=== PATIENT | female | born 1995 | race Hispanic/Latino ===

== ENCOUNTER 2021-05-04 09:58 | Emergency (ER) | payer SELFPAY ==
--- NOTE | 2021-05-04 12:48 | ER ---
Nurse's Notes [facility] Name: Sarah Castanon Age: 25 yrs Sex: Female : 1995 Arrival Date: 05/04/2021 Time: 10:01 Bed 9 Private MD: Diagnosis: Acute pharyngitis, unspecified Presentation: 05/04 10:27 Chief complaint: Patient states: c/o congestion,sob, cp times 3 days. states positive kh1 n/v/d. positive cough. Coronavirus screen: Vaccine status: Patient reports being unvaccinated. congestion, cough unrelated to allergies, diarrhea, difficulty breathing, headache, muscle pain, nausea. Ebola Screen: No symptoms or risks identified at this time. Initial Sepsis Screen: Does the patient meet any 2 criteria? No. Patient's initial sepsis screen is negative. Does the patient have a suspected source of infection? No. Patient's initial sepsis screen is negative. Risk Assessment: Do you want to hurt yourself or someone else? Patient reports no desire to harm self or others. Onset of symptoms is unknown. 10:27 Method Of Arrival: Ambulatory [facility] 10:27 Acuity: GRANT 3 kh1 Triage Assessment: 10:28 General: Appears in no apparent distress. comfortable. Respiratory: Reports shortness kh1 of breath at rest cough that is productive, Onset: The symptoms/episode began/occurred 3 days ago. - Immunization history:: Adult Immunizations up to date, Client reports having NOT received the Covid vaccine. - Social history:: Smoking status: Patient reports the use of cigarette tobacco products, smokes one-half pack cigarettes per day. Screenin:26 Abuse screen: Denies threats or abuse. Nutritional screening: No deficits noted. On no kh1 prescribed diet Difficulty chewing/swallowing? No. Tuberculosis screening: No symptoms or risk factors identified. Never had TB. Possible symptoms: None. Fall Risk No fall in past 12 months (0 pts). No secondary diagnosis (0 pts). No IV (0 pts). Ambulatory Aid- None/Bed Rest/Nurse Assist (0 pts). Gait- Normal/Bed Rest/Wheelchair (0 pts) Mental Status- Oriented to own ability (0 pts). Assessment: 10:12 General: Appears in no apparent distress. comfortable, Behavior is calm, cooperative, kh1 appropriate for age. Pain: Complains of pain in chest Pain radiates to back. Cardiovascular: Rhythm is regular. Respiratory: Airway is patent Respiratory effort is even, unlabored, Respiratory pattern is regular, the patient has mild shortness of breath. 11:28 Reassessment: Patient appears in no apparent distress at this time. No changes from [facility] previously documented assessment. Patient and/or family updated on plan of care and expected duration. Pain level reassessed. Patient is alert, oriented x 3, equal unlabored respirations, skin warm/dry/pink. Vital Signs: 10:25 BP 128 / 84; Pulse 70; Resp 16; Temp 98.0; Pulse Ox 100% on R/A; kh1 11:29 BP 121 / 77; Pulse 68; Resp 18; Temp 98.2; Pulse Ox 99% on R/A; kh1 Vitals: 10:25 Cardiac Rhythm Assessment Regular Sinus rhythm. [facility] ED Course: 10:01 Patient arrived in ED. as 10:09 Noble Apple PA is PHCP. fidel 10:09 Dimitrios Russell MD is Attending Physician. tamara 10:12 Jen Torres is Primary Nurse. 1 10:26 Patient has correct armband on for positive identification. [facility] 10:28 Triage completed. [facility] 11:28 Strep Sent. [facility] Administered Medications: No medications were administered Outcome: 12:47 Discharge ordered by . israel 13:04 Patient left the ED. tc5 Signatures: Noble Apple PA PA jmm Martinez, Amelia as Jen Torres [facility] Graciela Benites, RN RN tc5 Corrections: (The following items were deleted from the chart) 11:47 11:28 CORONAVIRUS+MR.LAB.BRZ drawn and sent. [facility] EDMS
--- NOTE | 2021-05-04 12:48 | EDPHYS ---
Physician Documentation [facility] Name: Sarah Castanon Age: 25 yrs Sex: Female : 1995 Arrival Date: 05/04/2021 Time: 10:01 Bed 9 Private MD: JIMMY Physician Dimitrios Russell HPI: 05/04 10:21 This 25 yrs old Female presents to ER via Ambulatory with complaints of jmm Shortness Of Breath, Fever, Chest Pain. 10:21 The patient has shortness of breath at rest. Onset: The symptoms/episode began/occurred jmm gradually. 17:22 Modifying factors: The symptoms are alleviated by nothing. the symptoms are aggravated jmm by nothing. This is a 25-year-old this is a 25-year-old female with no chronic medical conditions presents emerged part with complaints of congestion, cough, chest pain with cough, sore throat. Child has similar symptoms. . - Immunization history:: Adult Immunizations up to date, Client reports having NOT received the Covid vaccine. - Social history:: Smoking status: Patient reports the use of cigarette tobacco products, smokes one-half pack cigarettes per day. ROS: 17:22 Constitutional: Positive for body aches, chills. jmm 17:22 ENT: Positive for sore throat. 17:22 Respiratory: Positive for cough. 17:22 All other systems are negative. Exam: 17:22 Constitutional: This is a well developed, well nourished patient who is awake, alert, jmm and in no acute distress. Head/Face: atraumatic. Eyes: EOMI, no conjunctival erythema appreciated 17:22 Neck: Trachea midline, Supple Chest/axilla: Normal chest wall appearance and motion. Cardiovascular: Regular rate and rhythm. No edema appreciated Respiratory: Normal respirations, no respiratory distress appreciated Abdomen/GI: Non distended, soft Back: Normal ROM Skin: General appearance color normal MS/ Extremity: Moves all extremities, no obvious deformities appreciated, no edema noted to the lower extremities Neuro: Awake and alert, normal gait Psych: Behavior is normal, Mood is normal, Patient is cooperative and pleasant 17:22 ENT: Posterior pharynx: erythema, that is mild. Vital Signs: 10:25 BP 128 / 84; Pulse 70; Resp 16; Temp 98.0; Pulse Ox 100% on R/A; kh1 11:29 BP 121 / 77; Pulse 68; Resp 18; Temp 98.2; Pulse Ox 99% on R/A; kh1 MDM: 10:21 Patient medically screened. [facility] 12:46 Data reviewed: vital signs, nurses notes. Counseling: I had a detailed discussion with fidel the patient and/or guardian regarding: the historical points, exam findings, and any diagnostic results supporting the discharge/admit diagnosis, lab results, the need for outpatient follow up, to return to the emergency department if symptoms worsen or persist or if there are any questions or concerns that arise at home. ED course: Patient is alert and non toxic in appearance in the ED. Advised to follow up with pcp and otherwise given strict return precautions. Patient understood and agrees with the plan of care. . 05/04 11:00 Order name: Strep; Complete Time: 12:07 [facility] 05/04 11:47 Order name: SARS-COV-2 RT PCR; Complete Time: 12:46 EDMS 05/04 11:52 Order name: Throat Culture EDMS Administered Medications: No medications were administered Disposition: 05/05 07:53 Co-signature as Attending Physician, Dimitrios Russell MD I agree with the assessment and [facility] plan of care. Disposition Summary: 05/04/21 12:47 Discharge Ordered Location: Home [facility] Condition: Stable [facility] Diagnosis - Acute pharyngitis, unspecified [facility] Followup: [facility] - With: Private Physician - When: 2 - 3 days - Reason: Recheck today's complaints, Continuance of care, Re-evaluation by your physician Discharge Instructions: - Discharge Summary Sheet [facility] - Pharyngitis [facility] Forms: - Medication Reconciliation Form [facility] - Thank You Letter [facility] - Antibiotic Education [facility] - Prescription Opioid Use [facility] Prescriptions: - Augmentin 875-125 mg Oral Tablet - take 1 tablet by ORAL route every 12 hours for 10 days; 20 tablet; Refills: 0, [facility] Product Selection Permitted Signatures: Dispatcher [employer] Dimitrios Melendez MD MD cha Mickail, Joel, PA PA jmm Harris, Kecia [facility] Corrections: (The following items were deleted from the chart) 05/04 11:47 11:00 CORONAVIRUS+.MARIANELAZ ordered. EDMT EDMS
[2021-05-04 13:10] VITALS: BP 121/77; TEMP 98.2; O2SAT 99
== END 2021-05-04 13:04 | disposition home or self-care (01) ==
LOC: ER 09:58
DX: J02.9 Acute pharyngitis, unspecified (principal); Z20.822 Contact with and (suspected) exposure to COVID-19
CPT/HCPCS: 87070; 87081; 99283; U0003

== ENCOUNTER 2021-05-10 13:54 | Emergency (ER) | payer OTHER, SELFPAY ==
[2021-05-10 14:45] LABS: Urine Specific Gravity/Preg 1.025 (1.005-1.030)
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
[2021-05-10] MEDS ORDERED: CYCLOBENZAPRINE 10 MG TAB ONE (16:27)
[2021-05-10] MEDS ORDERED: IBUPROFEN 400 MG TAB ONE (16:27)
[2021-05-10 16:35] VITALS: BP 124/94; TEMP 97.6; O2SAT 100
[2021-05-11 16:32] LABS: Urine Blood Negative (Negative); Urine Glucose Negative (Negative); Urine Protein Negative (Negative); Urine Specific Gravity 1.025 (1.005-1.030)
== END 2021-05-10 16:16 | disposition home or self-care (01) ==
LOC: ER 13:54
DX: S39.012A Strain of muscle, fascia and tendon of lower back, initial encounter (principal); S39.013A Strain of muscle, fascia and tendon of pelvis, initial encounter; S29.012A Strain of muscle and tendon of back wall of thorax, initial encounter; F17.210 Nicotine dependence, cigarettes, uncomplicated; V49.40XA Driver injured in collision with unspecified motor vehicles in traffic accident, initial encounter
CPT/HCPCS: 70450; 71250; 72125; 81003; 81025

== ENCOUNTER 2021-08-11 09:33 | Emergency (ER) | payer SELFPAY ==
[2021-08-11] MEDS ORDERED: dexAMETHasone 10 MG/ML VIAL ONE (10:41)
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
--- NOTE | 2021-08-11 10:54 | EDPHYS ---
Physician Documentation [facility] Name: Sarah Castanon Age: 25 yrs Sex: Female : 1995 Arrival Date: 08/11/2021 Time: 09:34 Bed 26 Private MD: ED Physician Bert Dill HPI: 08/11 10:39 This 25 yrs old Female presents to ER via Ambulatory with complaints of Facial jmm Swelling, covid+, Breathing Difficulty. 10:39 The patient's rash thought to be caused by an unknown cause. The rash is located on the jmm face, right ear and left ear. Onset: The symptoms/episode began/occurred this morning. Associated signs and symptoms: Pertinent positives: burning sensation, Pain Pertinent negatives: swelling of lips, swelling of throat, swelling of tongue, vomiting. It is unknown whether or not the patient has had similar symptoms in the past. This is a 25-year-old female the presents emerged department with complaints of facial swelling and ear swelling bilaterally which began this morning. Patient describes it as a burning sensation to her face. Denies fever, shortness of breath, vomiting. Patient states she has a shellfish allergy but otherwise has no other known allergies.. 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 - Social history:: Smoking status: Patient denies any tobacco usage or history of. ROS: 10:39 Constitutional: Negative for fever, chills, and weight loss, Cardiovascular: Negative jmm for chest pain, palpitations, and edema, Respiratory: Negative for shortness of breath, cough, wheezing, and pleuritic chest pain. 10:39 Skin: Positive for erythema. 10:39 All other systems are negative. Exam: 10:39 Constitutional: This is a well developed, well nourished patient who is awake, alert, jmm and in no acute distress. 10:39 Eyes: EOMI, no conjunctival erythema appreciated 10:39 Neck: Trachea midline, Supple Chest/axilla: Normal chest wall appearance and motion. Cardiovascular: Regular rate and rhythm. No edema appreciated Respiratory: Normal respirations, no respiratory distress appreciated Abdomen/GI: Non distended, soft Back: Normal ROM 10:39 MS/ Extremity: Moves all extremities, no obvious deformities appreciated, no edema noted to the lower extremities 10:39 Head/face: Noted is rash, that is erythematous. 10:39 ENT: Posterior pharynx: is normal, Airway: normal, no evidence of obstruction. 10:39 Skin: on the face and left ear and right ear. 10:39 Neuro: Motor: is normal. 10:39 Psych: Behavior/mood is pleasant, cooperative, anxious. Vital Signs: 09:51 BP 132 / 88; Pulse 87; Resp 18; Temp 98.7; Pulse Ox 100% ; Weight 76.2 kg; Height 5 ft. jh5 2 in. (157.48 cm); Pain 7/10; 10:21 BP 117 / 49; Pulse 77; Resp 16; Pulse Ox 97% ; bp 11:11 BP 123 / 95; Pulse 70; Resp 16; Pulse Ox 100% ; bp 09:51 Body Mass Index 30.73 (76.20 kg, 157.48 cm) [facility] MDM: 10:39 Patient medically screened. [facility] 10:52 Data reviewed: vital signs, nurses notes. Counseling: I had a detailed discussion with fidel the patient and/or guardian regarding: the historical points, exam findings, and any diagnostic results supporting the discharge/admit diagnosis, the need for outpatient follow up, to return to the emergency department if symptoms worsen or persist or if there are any questions or concerns that arise at home. ED course: Patient is alert and nontoxic in appearance in the ED. Physical exam findings appear consistent with a dermatitis to the face. Patient will be given a course of steroids and is otherwise given strict return precautions. Patient understood agrees plan of care.. Administered Medications: 10:45 Drug: Decadron (dexamethasone) 10 mg Route: IM; Site: right gluteus; bp 11:14 Follow up: Response: No adverse reaction bp Disposition Summary: 08/11/21 10:53 Discharge Ordered Location: Home fidel Condition: Stable fidel Diagnosis - Rash and other nonspecific skin eruption israel Followup: fidel - With: Private Physician - When: 2 - 3 days - Reason: Recheck today's complaints, Continuance of care, Re-evaluation by your physician Discharge Instructions: - Rash, Adult israel - Discharge Summary Sheet bp Forms: - Medication Reconciliation Form [facility] - Thank You Letter [facility] - Work release form bp - Antibiotic Education [facility] - Prescription Opioid Use [facility] Prescriptions: - Hydroxyzine HCl 25 mg Oral Tablet - take 1 tablet by ORAL route every 6 hours As needed; 30 tablet; Refills: 0, [facility] Product Selection Permitted - Prednisone 20 mg Oral Tablet - take 3 tablets by ORAL route once daily for 5 days; 15 tablet; Refills: 0, [facility] Product Selection Permitted Signatures: Noble Apple PA PA jmm Peltier, Brian, RN RN bp Lindsey Bobby RN RN jh5
[2021-08-11 12:00] VITALS: TEMP 98.7
[2021-08-11 12:07] VITALS: BP 123/95; O2SAT 100
== END 2021-08-11 11:14 | disposition home or self-care (01) ==
LOC: ER 09:33
DX: R21 Rash and other nonspecific skin eruption (principal); U07.1 COVID-19
CPT/HCPCS: 96372; 99284; J1100

== ENCOUNTER 2024-04-07 23:12 | Emergency (ER) | payer SELFPAY ==
[2024-04-08 00:55] LABS: SARS-CoV-2 Antigen CONTROL BLUE LINE VIS/BG OK; SARS-CoV-2 Antigen Rapid Res Negative (Negative)
--- NOTE | 2024-04-08 00:57 | EDPHYS ---
Physician Documentation [facility] Name: Sarah Castanon Age: 28 yrs Sex: Female : 1995 Arrival Date: 04/07/2024 Time: 23:12 Bed 19 Private MD: ED Physician Mazin Marsh HPI: 04/07 23:29 This 28 yrs old Female presents to ER via Ambulatory with complaints of Flu sb4 Symptoms. 23:29 malaise and worsening sore throat x 3 days. woke up gasping for air this evening. sb4 states daughter and significant other have some flu like symptoms as well. denies any known fevers. no cough or chest pain. Historical: - Allergies: 23:27 No Known Allergies; ss - Home Meds: 23:27 None [Active]; ss - PMHx: 23:27 None; ss - PSHx: 23:27 tubal ligation; ss - Immunization history:: Client reports having NOT received the Covid vaccine. - Infectious Disease History:: Denies. - Social history:: Smoking status: Patient reports the use of cigarette tobacco products, smokes one pack cigarettes per day. ROS: 23:29 Abdomen/GI: Negative for abdominal pain, nausea, vomiting, diarrhea, and constipation, sb4 23:29 Constitutional: Positive for malaise, 23:29 ENT: Positive for sore throat, 23:29 All other systems are negative, Exam: 23:29 Constitutional: This is a well developed, well nourished patient who is awake, alert, sb4 and in no acute distress. Head/Face: Normocephalic, atraumatic. Eyes: Extra-ocular motions intact. Periorbital areas with no swelling, redness, or edema. Cardiovascular: Regular rate and rhythm with a normal S1 and S2. Respiratory: Lungs have equal breath sounds bilaterally, clear to auscultation and percussion. No rales, rhonchi or wheezes noted. No increased work of breathing, no retractions or nasal flaring. Abdomen/GI: Soft, non-tender, no distension. Skin: Warm, dry with normal turgor. Normal color with no rashes, no lesions, and no evidence of cellulitis. 23:29 ENT: Posterior pharynx: Tonsils: bilaterally enlarged, with erythema, no exudate, no ulcerations, Vital Signs: 23:25 BP 143 / 97; Pulse 103; Resp 18; Temp 98.4(O); Pulse Ox 98% ; Weight 79.38 kg; Height 5 ss ft. 2 in. ; Pain 03/08; 04/08 01:14 BP 132 / 82; Pulse 88; Resp 16; Pulse Ox 99% on R/A; hb 04/07 23:25 Body Mass Index 32.01 (79.38 kg, 157.48 cm) ss 04/07 23:25 Pain Scale: Adult ss MDM: 04/07 23:15 Patient medically screened. sb4 04/08 00:56 Data reviewed: vital signs, nurses notes, lab test result(s), and as a result, I will sb4 discharge patient. Counseling: I had a detailed discussion with the patient and/or guardian regarding the historical points, exam findings, and any diagnostic results supporting the discharge/admit diagnosis, lab results, to return to the emergency department if symptoms worsen or persist or if there are any questions or concerns that arise at home. 04/07 23:23 Order name: SARS RAPID; Complete Time: 00:56 sb4 04/07 23:23 Order name: Flu; Complete Time: 00:55 sb4 04/07 23:23 Order name: Strep; Complete Time: 00:55 sb4 Administered Medications: 01:12 Drug: Rocephin (cefTRIAXone) IM 1 grams IM once Route: IM; Site: right ventrogluteal; al5 Disposition Summary: 04/08/24 00:56 Discharge Ordered Notes: Location: Home sb4 Problem: new sb4 Symptoms: have improved sb4 Condition: Stable sb4 Diagnosis - Streptococcal pharyngitis sb4 Followup: sb4 - With: Emergency Department - When: As needed - Reason: Trouble breathing, Worsening of condition Discharge Instructions: - Discharge Summary Sheet sb4 - Strep Throat, Adult, [id number] sb4 Forms: - Antibiotic Education sb4 - Patient Portal Instructions sb4 - Leadership Thank You Letter sb4 - Family Work Release al5 Prescriptions: - Amoxicillin 875 mg Oral Tablet - take 1 tablet ORAL route every 12 hours for 10 days; 20 tablet; Refills: 0, sb4 Product Selection Permitted Addendum: 04/11/2024 16:19 I was immediately available for consultation during this patient's visit. I did not e c2 personally see the patient or discuss the patient with the DIXIE. . Signatures: Dispatcher [employer] EDMS Shirley Ruth, RN RN ss Misty Mckinley PA-C PA-C sb4 Mazin Marsh MD MD ec2 Ella Snyder RN RN al5 Corrections: (The following items were deleted from the chart) 04/07 23:24 23:24 SARS-COV-2 Antigen Rapid+I.LAB.BRZ ordered. EDMS EDMS 23:24 23:24 Influenza Screen (A \T\ B)+BA.LAB.BRZ ordered. EDMS EDMS 23:24 23:24 Group A Streptococcus Rapid Sc+BA.LAB.BRZ ordered. EDMS EDMS
--- NOTE | 2024-04-08 00:57 | ER ---
Nurse's Notes [facility] Name: Sarah Castanon Age: 28 yrs Sex: Female : 1995 Arrival Date: 04/07/2024 Time: 23:12 Bed 19 Private MD: Diagnosis: Streptococcal pharyngitis Presentation: 04/07 23:25 Chief complaint: Patient states: not feeling well x 3 days. Pt pain in throat when ss swallowing. Coronavirus screen: Client denies travel out of the [place] in the last 14 days. Ebola Screen: Patient denies exposure to infectious person. Patient denies travel to an Ebola-affected area in the 21 days before illness onset. Initial Sepsis Screen: Does the patient meet any 2 criteria? No. Patient's initial sepsis screen is negative. Does the patient have a suspected source of infection? No. Patient's initial sepsis screen is negative. Risk Assessment: Do you want to hurt yourself or someone else? Patient reports no desire to harm self or others. Onset of symptoms was April 04, 2024. 23:25 Method Of Arrival: Ambulatory ss 23:25 Acuity: GRANT 4 ss Triage Assessment: 23:27 General: Appears in no apparent distress. comfortable, Behavior is calm, cooperative. ss Historical: - Allergies: 23:27 No Known Allergies; ss - Home Meds: 23:27 None [Active]; ss - PMHx: 23:27 None; ss - PSHx: 23:27 tubal ligation; ss - Immunization history:: Client reports having NOT received the Covid vaccine. - Infectious Disease History:: Denies. - Social history:: Smoking status: Patient reports the use of cigarette tobacco products, smokes one pack cigarettes per day. Screenin:42 [facility] ED Fall Risk Assessment (Adult) History of falling in the last 3 months, ss including since admission No falls in past 3 months (0 pts) Confusion or Disorientation No (0 pts) Intoxicated or Sedated No (0 pts) Impaired Gait No (0 pts) Mobility Assist Device Used No (0 pt) Altered Elimination No (0 pt) Score/Fall Risk Level 0 - 2 = Low Risk Oriented to surroundings. Abuse screen: Denies threats or abuse. Denies injuries from another. Nutritional screening: No deficits noted. Tuberculosis screening: Never had TB. Assessment: 23:42 General: Appears in no apparent distress. Behavior is calm, cooperative. Pain: ss Complains of pain in throat Pain currently is 0 out of 10 on a pain scale. at worst was 8 out of 10 on a pain scale. Aggravated by when swallowing. Neuro: Level of Consciousness is awake, alert, obeys commands, Oriented to person, place, time, situation. Cardiovascular: Capillary refill < 3 seconds is brisk in bilateral fingers. Respiratory: Airway is patent Respiratory effort is even, unlabored, Respiratory pattern is regular, symmetrical. GI: Patient currently denies diarrhea, nausea, vomiting. EENT: Throat is reddened has enlarged tonsils. Derm: Skin is intact, is healthy with good turgor, Skin is pink, warm \T\ dry. normal. 04/08 01:13 Reassessment: Patient appears in no apparent distress at this time. hb Vital Signs: 04/07 23:25 BP 143 / 97; Pulse 103; Resp 18; Temp 98.4(O); Pulse Ox 98% ; Weight 79.38 kg; Height 5 ss ft. 2 in. ; Pain 03/08; 04/08 01:14 BP 132 / 82; Pulse 88; Resp 16; Pulse Ox 99% on R/A; hb 04/07 23:25 Body Mass Index 32.01 (79.38 kg, 157.48 cm) 04/07 23:25 Pain Scale: Adult ss ED Course: 04/07 23:13 Patient arrived in ED. im 23:14 Misty Mckinley PA-C is PHCP. sb4 23:14 Mazin Marsh MD is Attending Physician. sb4 23:27 Triage completed. ss 23:27 Arm band placed on right wrist. ss 23:42 Shirley Ruth, HEATHER is Primary Nurse. ss 23:42 Patient has correct armband on for positive identification. Bed in low position. ss 23:42 Strep Sent. ss 23:42 Flu Sent. ss 23:42 SARS RAPID Sent. ss 04/08 00:48 Strep Sent. ss 00:48 Flu Sent. ss 00:48 SARS RAPID Sent. ss 01:14 Provided Education on: mediations, follow up. hb 01:14 No provider procedures requiring assistance completed. Patient did not have IV access hb during this emergency room visit. Administered Medications: 01:12 Drug: Rocephin (cefTRIAXone) IM 1 grams IM once Route: IM; Site: right ventrogluteal; al5 Medication: 04/07 23:42 VIS not applicable for this client. Outcome: 04/08 00:56 Discharge ordered by . rosemarie 01:14 Discharged to home ambulatory, 01:14 Condition: stable 01:14 Discharge instructions given to patient, Instructed on discharge instructions, follow up and referral plans. medication usage, Demonstrated understanding of instructions, follow-up care, medications, Prescriptions given X 1, 01:15 Patient left the ED. Signatures: Shirley Ruth RN RN Shawnee Khan, RN RN Misty Mckinley, PA-C PA-C sb4 Dhara oTrres Amanda RN RN al5
[2024-04-08] MEDS ORDERED: LIDOCAINE 1% MPF 2 ML AMPULE ONE (01:07)
[2024-04-08] MEDS ORDERED: CEFTRIAXONE 1000 MG/VIAL ONE (01:07)
[2024-04-08 01:57] VITALS: TEMP 98.4
[2024-04-08 01:58] VITALS: BP 132/82; O2SAT 99
== END 2024-04-08 01:15 | disposition home or self-care (01) ==
LOC: ER 23:12
DX: J02.0 Streptococcal pharyngitis (principal); Z11.52 Encounter for screening for COVID-19
CPT/HCPCS: 36415; 87081; 87804; 87811; 96372; 99284; J0696

== ENCOUNTER 2024-08-05 12:18 | Emergency (ER) | payer SELFPAY ==
--- NOTE | 2024-08-05 13:22 | ER ---
Nurse's Notes [facility] Name: Sarah Castanon Age: 28 yrs Sex: Female : 1995 Arrival Date: 08/05/2024 Time: 12:18 Bed 7 Private MD: Diagnosis: Suspected vaginal foreign body - none identified Presentation: 08/05 13:07 Chief complaint: Patient states: Possible tampon stuck in vagina for 4 days. No pain. ll1 Coronavirus screen: Client denies travel out of the [place] in the last 14 days. At this time, the client does not indicate any symptoms associated with coronavirus-19. Ebola Screen: Patient denies travel to an Ebola-affected area in the 21 days before illness onset. Initial Sepsis Screen: Does the patient meet any 2 criteria? No. Patient's initial sepsis screen is negative. Does the patient have a suspected source of infection? No. Patient's initial sepsis screen is negative. Risk Assessment: Do you want to hurt yourself or someone else? Patient reports no desire to harm self or others. Onset of symptoms was August 01, 2024. 13:07 Method Of Arrival: Ambulatory ll1 13:07 Acuity: GRANT 3 ll1 Triage Assessment: 13:21 General: Appears uncomfortable, Behavior is cooperative, appropriate for age, anxious. ll1 Pain: Denies pain. : Reports possible FB in vagina. 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 - Infectious Disease History:: Denies. - Family history:: not pertinent. - Hospitalizations: : No recent hospitalization is reported. - Social history:: Smoking status: Patient denies any tobacco usage or history of. Screenin:21 [facility] ED Fall Risk Assessment (Adult) History of falling in the last 3 months, ll1 including since admission No falls in past 3 months (0 pts) Confusion or Disorientation No (0 pts) Intoxicated or Sedated No (0 pts) Impaired Gait No (0 pts) Mobility Assist Device Used No (0 pt) Altered Elimination No (0 pt) Score/Fall Risk Level 0 - 2 = Low Risk Maintained a safe environment, Hourly rounding (assess needs \T\ fall precautionary measures) done. Abuse screen: Denies threats or abuse. Nutritional screening: No deficits noted. Tuberculosis screening: No symptoms or risk factors identified. Vital Signs: 13:06 BP 121 / 87; Pulse 73; Resp 16; Temp 97.3; Pulse Ox 99% ; Pain 0/10; ll1 13:26 BP 112 / 84; Pulse 70; Resp 15; Pulse Ox 99% ; Pain 0/10; ll1 13:06 Pain Scale: Adult ll1 13:26 Pain Scale: Adult ll1 ED Course: 12:20 Patient arrived in ED. im 12:24 Lavelle Betancourt MD is Attending Physician. rn 12:54 Arm band placed on Patient placed in an exam room, on a stretcher. ll1 13:07 Triage completed. ll1 13:08 Kiana Banks, HEATHER is Primary Nurse. ll1 13:15 Assist provider with pelvic exam: Performed by Lavelle Betancourt MD Patient tolerated well. ll1 13:22 Patient has correct armband on for positive identification. Bed in low position. Call ll1 light in reach. Provided Education on: ER procedures and process. Client placed on continuous cardiac and pulse oximetry monitoring. NIBP monitoring applied. 13:27 Patient did not have IV access during this emergency room visit. ll1 Administered Medications: No medications were administered Medication: 13:21 VIS not applicable for this client. ll1 Outcome: 13:21 Discharge ordered by . rn 13:27 Discharged to home ambulatory, 1 13:27 Condition: stable 13:27 Discharge instructions given to patient, Instructed on discharge instructions, follow up and referral plans. Demonstrated understanding of instructions, follow-up care, 13:27 Patient left the ED. ll1 Signatures: Lavelle Betancourt MD MD rn Lewis, Lynsay, RN RN 1 Dhara Torres im
--- NOTE | 2024-08-05 13:22 | EDPHYS ---
Physician Documentation [facility] Name: Sarah Castanon Age: 28 yrs Sex: Female : 1995 Arrival Date: 08/05/2024 Time: 12:18 Bed 7 Private MD: ED Physician Lavelle Betancourt HPI: 08/05 13:18 This 28 yrs old Female presents to ER via Ambulatory with complaints of rn Foreign body In Vagina - tampon. 13:18 The patient presents with Possible foreign body. Onset: The symptoms/episode rn began/occurred 3 day(s) ago. Modifying factors: The symptoms are alleviated by nothing, the symptoms are aggravated by nothing. Severity of symptoms: At their worst the symptoms were mild, in the emergency department the symptoms are unchanged. The patient has not experienced similar symptoms in the past. Patient reports placed tampon on Sunday, does not remember taking it out. No foul-smelling discharge or fever. No abdominal or pelvic pain. 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 Has an appointment in 2 days.. 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 - Infectious Disease History:: Denies. - Family history:: not pertinent. - Hospitalizations: : No recent hospitalization is reported. - Social history:: Smoking status: Patient denies any tobacco usage or history of. ROS: 13:18 Constitutional: Negative for fever, chills, and weight loss, : Negative for pelvic youth support worker perineal pain. No vaginal discharge Skin: Negative for injury, rash, and discoloration, Exam: 13:18 Constitutional: This is a well developed, well nourished patient who is awake, alert, rn and in no acute distress. Abdomen/GI: Soft, non-tender Female : Normal external genitalia. Small amount of blood and clot in vaginal canal, explored with Q-tips and ring forceps and specula without evidence of foreign body. All fornices explored and no foreign body found. Vital Signs: 13:06 BP 121 / 87; Pulse 73; Resp 16; Temp 97.3; Pulse Ox 99% ; Pain 0/10; ll1 13:26 BP 112 / 84; Pulse 70; Resp 15; Pulse Ox 99% ; Pain 0/10; ll1 13:06 Pain Scale: Adult ll1 13:26 Pain Scale: Adult ll1 MDM: 12:24 Medical Screening Exam initiated rn 13:18 Differential diagnosis: Vaginal foreign body. Data reviewed: vital signs, nurses notes, rn and as a result, I will discharge patient. Counseling: I had a detailed discussion with the patient and/or guardian regarding the historical points, exam findings, and any diagnostic results supporting the discharge/admit diagnosis, the need for outpatient follow up, to return to the emergency department if symptoms worsen or persist or if there are any questions or concerns that arise at home. Special discussion: I discussed with the patient/guardian in detail that at this point there is no indication for admission to the hospital. It is understood, however, that if the symptoms persist or worsen the patient needs to return immediately for re-evaluation. ED course: No evidence of foreign body found in vagina. Has appointment in 2 days, return precautions given and understood.. Administered Medications: No medications were administered Disposition Summary: 08/05/24 13:21 Discharge Ordered Notes: Location: Home rn Problem: new rn Symptoms: have improved rn Condition: Stable rn Diagnosis - Suspected vaginal foreign body - none identified rn Followup: rn - With: Private Physician - When: As needed - Reason: Recheck today's complaints, Re-evaluation by your physician Discharge Instructions: - Discharge Summary Sheet rn - Vaginal Foreign Body rn Forms: - Medication Reconciliation Form rn - Antibiotic lead burner - Prescription Opioid Use rn - Patient Portal Instructions rn - Leadership Thank You Letter rn Signatures: Lavelle Betancourt MD MD rn Lewis, Lynsay, RN RN 1 Corrections: (The following items were deleted from the chart) 13:19 13:18 Constitutional: Negative for fever, chills, and weight loss, : Negative for rn pelvic or perineal pain. No vaginal harness tier
[2024-08-05 13:43] VITALS: TEMP 97.3; O2SAT 99
[2024-08-05 13:51] VITALS: BP 112/84
== END 2024-08-05 13:27 | disposition home or self-care (01) ==
LOC: ER 12:18
DX: Z71.1 Person with feared health complaint in whom no diagnosis is made (principal)
CPT/HCPCS: 99283

== ENCOUNTER 2024-12-12 05:53 | Emergency (ER) | payer SELFPAY ==
--- NOTE | 2024-12-12 08:03 | RAD REPORT ---
EXAMINATION: XR Ankle Left 2 View CLINICAL INDICATION: Female, 29 years old. BR MAIN DEFORMITY Bed Name: TECHNIQUE: 2 view radiographs of the left ankle were obtained. COMPARISON: No prior exam. FINDINGS: No acute bone or joint abnormality seen. Joint alignment is maintained. Small calcaneal spur. Soft tissue swelling about the ankle most pronou nced laterally. IMPRESSION: No acute osseous abnormalities. Soft tissue swelling about the ankle.
--- NOTE | 2024-12-12 08:07 | EDPHYS ---
Physician Documentation [facility] Name: Sarah Castanon Age: 29 yrs Sex: Female : 1995 Arrival Date: 12/12/2024 Time: 05:53 Bed 17 Private MD: ED Physician Antonio Lucero HPI: 12/12 06:41 This 29 yrs old Female presents to ER via Ambulatory with complaints of Ankle gb1 Injury, Ankle Swelling. 06:41 29-year-old female fell and tripped into a hole in the ground and twisted her right gb1 ankle. She woke up this morning with more swollen. She took some Aleve and it still swollen and throbbing. She is able to walk on it but is very painful 8 out of 10.. Historical: - Allergies: 06:05 Iodine; br2 - PSHx: 06:05 tubal ligation; br2 - Immunization history:: Adult Immunizations up to date. - Infectious Disease History:: Denies. - Social history:: Smoking status: Patient reports the use of cigarette tobacco products, smokes one-half pack cigarettes per day, Patient uses alcohol, occasionally. Patient/guardian denies using street drugs. Exam: 06:41 Constitutional: This is a well developed, well nourished patient who is awake, alert, gb1 and in no acute distress. Head/Face: Normocephalic, atraumatic. Chest/axilla: Normal chest wall appearance and motion. Nontender with no deformity. No lesions are appreciated. Cardiovascular: Regular rate and rhythm with a normal S1 and S2. No gallops, murmurs, or rubs. Normal PMI, no JVD. No pulse deficits. MS/ Extremity: Pulses equal, no cyanosis. Neurovascular intact. Localized swelling to the left ankle joint circumferentially pulses intact DP/PT. Range of motion decreased secondary to pain and swelling. Vital Signs: 06:04 BP 159 / 101; Pulse 94; Resp 18; Temp 97.1; Pulse Ox 100% ; Weight 86.18 kg; Height 5 br2 ft. 2 in. ; Pain 8/10; 06:38 BP 138 / 96; Pulse 87; Resp 18; Pulse Ox 100% ; Pain 8/10; rg5 06:04 Body Mass Index 34.75 (86.18 kg, 157.48 cm) br2 06:04 Pain Scale: Adult br2 06:38 Pain Scale: Adult rg5 MDM: 06:13 Medical Screening Exam initiated gb1 06:41 ED course: 29-year-old female status post fall with a inversion injury of the left gb1 ankle. No signs of occult fracture or dislocation on x-ray. Likely ligamentous injury will need an MRI as an outpatient recommend an encourage NSAIDs for pain. Patient is compliant with this plan of care. Consider PCP follow-up with orthopedic consultation depending on the results of the MRI of the left ankle.. 08:07 Differential diagnosis: fracture, sprain. Data reviewed: vital signs, nurses notes, rt radiologic studies. Independent interpretation of the following test(s) in the Emergency Department X-Ray: My interpretation is No fracture seen on interpretation of x-ray images. Counseling: I had a detailed discussion with the patient and/or guardian regarding the historical points, exam findings, and any diagnostic results supporting the discharge/admit diagnosis, radiology results, the need for outpatient follow up. 12/12 06:04 Order name: Ankle Left 2 View XRAY; Complete Time: 08:04 gb1 Administered Medications: No medications were administered Disposition Summary: 12/12/24 08:07 Discharge Ordered Notes: Location: Home rt Condition: Stable rt Diagnosis - Sprain of ankle rt Followup: rt - With: Private Physician - When: 2 - 3 days - Reason: Discharge Instructions: - Discharge Summary Sheet rt - Ankle Sprain rt Forms: - Work release form rt - Medication Reconciliation Form rt - Antibiotic Education rt - Prescription Opioid Use rt - Patient Portal Instructions rt - Leadership Thank You Letter rt Signatures: Dispatcher [employer] EDMT Antonio Lucero MD MD rt Colleen Valencia MD MD gb1 Talita Wolf, HEATHER RN br2
--- NOTE | 2024-12-12 08:07 | ER ---
Nurse's Notes [facility] Name: Sarah Castanon Age: 29 yrs Sex: Female : 1995 Arrival Date: 12/12/2024 Time: 05:53 Bed 17 Private MD: Diagnosis: Sprain of ankle Presentation: 12/12 06:04 Chief complaint: Patient states: STEPPED IN A HOLE AND TWISTED LEFT ANKLE. PT ARRIVES br2 TO ER WITH EDEMA +2 TO LEFT ANKLE. Coronavirus screen: Client denies travel out of the [place] in the last 14 days. Ebola Screen: Patient denies exposure to infectious person. Initial Sepsis Screen: Does the patient meet any 2 criteria? No. Patient's initial sepsis screen is negative. Does the patient have a suspected source of infection? No. Patient's initial sepsis screen is negative. Risk Assessment: Do you want to hurt yourself or someone else? Patient reports no desire to harm self or others. Onset of symptoms was December 11, 2024 at 17:30. 06:04 Method Of Arrival: Ambulatory br2 06:04 Acuity: GRANT 4 br2 Triage Assessment: 06:05 General: Appears uncomfortable, Behavior is calm, cooperative. Pain: Complains of pain br2 in left lateral malleolus and dorsum of left foot Pain currently is 8 out of 10 on a pain scale. Musculoskeletal: Capillary refill < 3 seconds, Range of motion: intact in all extremities, Swelling present in left lateral malleolus and dorsum of left foot. Historical: - Allergies: 06:05 Iodine; br2 - PSHx: 06:05 tubal ligation; br2 - Immunization history:: Adult Immunizations up to date. - Infectious Disease History:: Denies. - Social history:: Smoking status: Patient reports the use of cigarette tobacco products, smokes one-half pack cigarettes per day, Patient uses alcohol, occasionally. Patient/guardian denies using street drugs. Screenin:07 [facility] ED Fall Risk Assessment (Adult) History of falling in the last 3 months, rg5 including since admission Confusion or Disorientation No (0 pts) Intoxicated or Sedated No (0 pts) Impaired Gait No (0 pts) Mobility Assist Device Used No (0 pt) Altered Elimination No (0 pt) Score/Fall Risk Level 0 - 2 = Low Risk Oriented to surroundings, Maintained a safe environment, Hourly rounding (assess needs \T\ fall precautionary measures) done. Abuse screen: Denies threats or abuse. Nutritional screening: No deficits noted. Tuberculosis screening: No symptoms or risk factors identified. Assessment: 06:07 General: Appears in no apparent distress. Behavior is calm, cooperative, appropriate rg5 for age. Pain: Complains of pain in left foot Quality of pain is described as aching. Neuro: Level of Consciousness is awake, alert, obeys commands, Oriented to person, place, time, situation, Appropriate for age. Cardiovascular: Denies chest pain, Capillary refill < 3 seconds Patient's skin is warm and dry. Respiratory: Airway is patent Trachea midline Respiratory effort is even, unlabored, Respiratory pattern is regular, symmetrical. GI: Abdomen is round obese. : No signs and/or symptoms were reported regarding the genitourinary system. EENT: No signs and/or symptoms were reported regarding the EENT system. Derm: Skin is intact, Skin is dry, Skin is normal, Skin temperature is warm. Musculoskeletal: Swelling present in left lateral ankle. Vital Signs: 06:04 BP 159 / 101; Pulse 94; Resp 18; Temp 97.1; Pulse Ox 100% ; Weight 86.18 kg; Height 5 br2 ft. 2 in. ; Pain 8/10; 06:38 BP 138 / 96; Pulse 87; Resp 18; Pulse Ox 100% ; Pain 8/10; rg5 06:04 Body Mass Index 34.75 (86.18 kg, 157.48 cm) br2 06:04 Pain Scale: Adult br2 06:38 Pain Scale: Adult rg5 ED Course: 05:57 Patient arrived in ED. gm2 05:59 Humberto Burt, HEATHER is Primary Nurse. rg5 06:03 Colleen Valencia MD is Attending Physician. gb1 06:05 Triage completed. br2 06:05 Arm band placed on right wrist. br2 06:07 Patient has correct armband on for positive identification. rg5 06:07 No provider procedures requiring assistance completed. Patient did not have IV access rg5 during this emergency room visit. 06:26 Ankle Left 2 View XRAY In Process Unspecified. EDMS 07:00 Attending Physician role handed off by Colleen Valencia MD rt 07:00 Antonio Lucero MD is Attending Physician. rt 07:00 Patient has correct armband on for positive identification. Bed in low position. Call kc6 light in reach. Side rails up X 1. Pulse ox on. NIBP on. Door closed. Noise minimized. Lights dimmed. Warm blanket given. Pillow given. Verbal reassurance given. 07:00 Report received from HEATHER Arcos. kc6 07:00 Patient maintains SpO2 saturation greater than 95% on room air. kc6 08:20 Satnam wrap to left ankle. kc6 Administered Medications: No medications were administered Medication: 06:07 VIS not applicable for this client. rg5 Outcome: 08:07 Discharge ordered by MD. rt 08:21 Discharged to home ambulatory, kc6 08:21 Condition: good 08:21 Discharge instructions given to patient, Instructed on discharge instructions, follow up and referral plans. Demonstrated understanding of instructions, follow-up care, 08:25 Patient left the ED. kc6 Signatures: Dispatcher [employer] EDMS Natalia Gramajo, RN RN kc6 Antonio Lucero MD MD rt Colleen Valencia MD MD gb1 Thais Maurice gm2 Humberto Burt RN RN rg5 Talita Wolf RN RN br2
[2024-12-12 08:32] VITALS: TEMP 97.1; O2SAT 100
[2024-12-12 08:33] VITALS: BP 138/96
== END 2024-12-12 08:25 | disposition home or self-care (01) ==
LOC: ER 05:53
DX: S93.401A Sprain of unspecified ligament of right ankle, initial encounter (principal)
CPT/HCPCS: 99283

== ENCOUNTER 2024-12-19 00:16 | Emergency (ER) | payer SELFPAY ==
[2024-12-19] MEDS ORDERED: METHYLPREDNISOLONE 125 MG INJ ONE (00:24)
[2024-12-19] MEDS ORDERED: DIPHENHYDRAMINE 50 MG/ML VIAL ONE (00:24)
[2024-12-19] MEDS ORDERED: NA CHLORIDE 0.9% 1,000 ML ONE (00:39)
[2024-12-19] MEDS ORDERED: FAMOTIDINE 20 MG/2 ML VIAL IV ONE (00:39)
[2024-12-19] MEDS ORDERED: LORazepam 2 MG/ML VIAL ONE (01:55)
[2024-12-19] MEDS ORDERED: ONDANSETRON 4 MG/2 ML VIAL ONE (01:56)
--- NOTE | 2024-12-19 02:15 | EDPHYS ---
Physician Documentation [facility] Name: Sarah Castanon Age: 29 yrs Sex: Female : 1995 Arrival Date: 12/19/2024 Time: 00:16 Bed 11 Private MD: ED Physician Antonio Lucero HPI: 12/19 02:06 This 29 yrs old Female presents to ER via Ambulatory with complaints of sb4 Allergic Reaction. 02:06 Patient states that she has a known allergy to shellfish. States that she purposefully sb4 ate imitation crab yesterday and ate 2 pieces of shrimp this evening. States the ingestion was several hours ago and was feeling fine until suddenly she started experiencing diffuse itchiness and shortness of breath. She has not taken any antihistamines or used her EpiPen. Historical: - Allergies: 00:35 Iodine; jb4 00:35 SHELLFISH; jb4 - PSHx: 00:35 tubal ligation; jb4 - Immunization history:: Adult Immunizations up to date. - Infectious Disease History:: Denies. - Social history:: Smoking status: Patient denies any tobacco usage or history of. ROS: 02:06 Constitutional: Negative for fever, chills, and weight loss, sb4 02:06 Respiratory: Positive for shortness of breath, 02:06 Skin: Positive for rash, 02:06 All other systems are negative, Exam: 02:07 Head/Face: Normocephalic, atraumatic. Eyes: Extra-ocular motions intact. Periorbital sb4 areas with no swelling, redness, or edema. ENT: Mucous membranes moist. Cardiovascular: Regular rate and rhythm with a normal S1 and S2. Respiratory: No increased work of breathing, no retractions or nasal flaring. Abdomen/GI: Soft, non-tender, no distension. 02:07 Constitutional: The patient appears alert, awake, anxious, restless, 02:07 ENT: Posterior pharynx: swelling, that is mild, 02:07 Respiratory: Breath sounds: are clear throughout, 02:07 Skin: rash a mild rash is noted, urticaria, and is diffusely located, Vital Signs: 00:32 BP 128 / 82; Pulse 84; Resp 28; Temp 98.6(O); Pulse Ox 99% on R/A; jb4 00:45 BP 126 / 81; Pulse 79; Resp 19 S; Pulse Ox 98% on R/A; ha1 01:45 BP 136 / 94; Pulse 75; Resp 16 S; Pulse Ox 99% on R/A; ha1 02:28 BP 128 / 69; Pulse 72; Resp 18 S; Pulse Ox 100% on R/A; ha1 MDM: 00:25 Medical Screening Exam initiated sb4 02:08 Differential diagnosis: anaphylaxis, angioedema, foreign body or airway obstruction sb4 Status Asthmaticus urticaria. 02:09 Data reviewed: vital signs, nurses notes, and as a result, I will discharge patient. sb4 Counseling: I had a detailed discussion with the patient and/or guardian regarding the historical points, exam findings, and any diagnostic results supporting the discharge/admit diagnosis, the need for outpatient follow up, for definitive care, to return to the emergency department if symptoms worsen or persist or if there are any questions or concerns that arise at home. 12/19 00:27 Order name: IV Start; Complete Time: 00:38 sb4 Administered Medications: 00:37 Drug: diphenhydrAMINE IVP 50 mg IVP once Route: IVP; Site: right upper arm; jb4 01:10 Follow up: Response: No adverse reaction; Marked relief of symptoms ha1 00:38 Drug: MethylPrednisoLONE IVP 125 mg IVP once Route: IVP; Site: right upper arm; jb4 01:00 Follow up: Response: No adverse reaction; Marked relief of symptoms ha1 00:43 Drug: NS 0.9% IV 1000 ml IV at 1 bolus Per protocol; to be given as a bolus over 60 ha1 minutes Route: IV; Rate: 1 bolus; Site: right upper arm; 02:31 Follow up: Response: No adverse reaction; IV Status: Completed infusion; IV Intake: ha1 1000ml 00:44 Drug: Famotidine IVP 20 mg IVP once; dilute with 10 mL 0.9% NaCl; give over 2 minutes ha1 Route: IVP; Site: right upper arm; 01:00 Follow up: Response: No adverse reaction; Marked relief of symptoms ha1 02:01 Drug: Ativan IVP 1 mg IVP once Route: IVP; Site: right antecubital; 02:20 Follow up: Response: No adverse reaction; Marked relief of symptoms ha1 02:01 Drug: Ondansetron IVP 4 mg IVP once; over 2 minutes Route: IVP; Site: right antecubital;cg 02:20 Follow up: Response: No adverse reaction; Marked relief of symptoms ha1 Disposition: 05:12 Co-signature as Attending Physician, Antonio Lucero MD I reviewed the patient's care rt provided by the Advanced Practice Provider and agree with the diagnosis and treatment plan. Disposition Summary: 12/19/24 02:14 Discharge Ordered Notes: Location: Home sb4 Problem: new sb4 Symptoms: have improved sb4 Condition: Stable sb4 Diagnosis - Acute allergic reaction sb4 Followup: sb4 - With: Emergency Department - When: As needed - Reason: Trouble breathing, Worsening of condition Discharge Instructions: - Discharge Summary Sheet sb4 - Anaphylactic Reaction, Adult, [id number] sb4 - Food Allergy, [id number] sb4 Forms: - Work release form sb4 - Family Work Release sb4 - Patient Portal Instructions sb4 - Leadership Thank You Letter sb4 Prescriptions: - epinephrine 0.1 mg/0.1 mL Injection Auto-Injector - administer 0.1 milligram SUBCUTANEOUS route every 5 to 15 minutes as needed for sb4 hypersensitivity reaction; do not exceed 2 doses per 24 hrs; 3 Applicator; Refills: 0, Product Selection Permitted - Pepcid 20 mg Oral Tablet - take 1 tablet ORAL route every 12 hours for 5 days; 10 tablet; Refills: 0, sb4 Product Selection Permitted - Loratadine 10 mg Oral Tablet - take 1 tablet ORAL route once daily; 14 tablet; Refills: 0, Product Selection sb4 Permitted - Prednisone 20 mg Oral Tablet - take 2 tablets ORAL route once daily for 5 days; 10 tablet; Refills: 0, Product sb4 Selection Permitted Signatures: Jeannine Philippe, RN RN Jeremiah Carrizales RN RN jb4 Porsche Olvera RN RN ha1 Misty Mckinley PA-C PA-C sb4 Antonio Lucero MD MD rt Corrections: (The following items were deleted from the chart) 02:07 02:06 Patient states that she has a known allergy to shellfish. States that she ate sb4 imitation crab yesterday and ate 2 pieces of shrimp this evening. States the ingestion was several hours ago and was feeling fine until suddenly she started experiencing diffuse itchiness and shortness of breath. She has not taken any antihistamines or used her EpiPen. sb4
--- NOTE | 2024-12-19 02:15 | ER ---
Nurse's Notes [facility] Name: Sarah Castanon Age: 29 yrs Sex: Female : 1995 Arrival Date: 12/19/2024 Time: 00:16 Bed 11 Private MD: Diagnosis: Acute allergic reaction Presentation: 12/19 00:32 Chief complaint: Patient states: I ate shell fish around 7 and started having a jb4 reaction now. I am having hives and itching and now it feels like my throat is swelling. Coronavirus screen: At this time, the client does not indicate any symptoms associated with coronavirus-19. Ebola Screen: No symptoms or risks identified at this time. Onset: The symptoms/episode began/occurred suddenly. Anaphylaxis evaluation, the patient reports or I have noted the following symptoms which indicate a significant risk of anaphylaxis: angioedema shortness of breath tachypnea . The patient has been moved to a treatment room and the charge nurse or attending physician has been notified. Initial Sepsis Screen: Does the patient meet any 2 criteria? No. Patient's initial sepsis screen is negative. Does the patient have a suspected source of infection? No. Patient's initial sepsis screen is negative. Risk Assessment: Do you want to hurt yourself or someone else? Patient reports no desire to harm self or others. Onset of symptoms was December 19, 2024. Transition of care: patient was not received from another setting of care. 00:32 Method Of Arrival: Ambulatory jb4 00:32 Acuity: GRANT 2 jb4 Triage Assessment: 00:35 General: Appears distressed, uncomfortable, Behavior is cooperative, anxious, crying. jb4 Pain: Denies pain. EENT: Throat swelling and redness noted. Neuro: Level of Consciousness is awake, alert, obeys commands, Oriented to person, place, time, situation. Cardiovascular: Patient's skin is warm and dry. Respiratory: Airway is patent Respiratory effort is even, labored, Respiratory pattern is symmetrical, tachypnea. Derm: Skin is intact, Skin is pink, warm \T\ dry. Musculoskeletal: Circulation, motion, and sensation intact. Range of motion: intact in all extremities. Historical: - Allergies: 00:35 Iodine; jb4 00:35 SHELLFISH; jb4 - PSHx: 00:35 tubal ligation; jb4 - Immunization history:: Adult Immunizations up to date. - Infectious Disease History:: Denies. - Social history:: Smoking status: Patient denies any tobacco usage or history of. Screenin:20 [facility] ED Fall Risk Assessment (Adult) History of falling in the last 3 months, ha1 including since admission No falls in past 3 months (0 pts) Confusion or Disorientation No (0 pts) Intoxicated or Sedated No (0 pts) Impaired Gait No (0 pts) Mobility Assist Device Used No (0 pt) Altered Elimination No (0 pt) Score/Fall Risk Level 0 - 2 = Low Risk Oriented to surroundings, Maintained a safe environment, Hourly rounding (assess needs \T\ fall precautionary measures) done. Abuse screen: Denies threats or abuse. Denies injuries from another. Nutritional screening: No deficits noted. Tuberculosis screening: No symptoms or risk factors identified. Assessment: 00:45 Reassessment: Patient and/or family updated on plan of care and expected duration. Pain ha1 level reassessed. Patient is alert, oriented x 3, equal unlabored respirations, skin warm/dry/pink. Patient states feeling better. Patient states symptoms have improved. 01:45 Reassessment: Patient and/or family updated on plan of care and expected duration. Pain ha1 level reassessed. Patient is alert, oriented x 3, equal unlabored respirations, skin warm/dry/pink. PATIENT REPORTS FEELING SOME ITCHINESS BUT SYMPTOMS HAVE IMPROVED. 02:28 Reassessment: Patient and/or family updated on plan of care and expected duration. Pain ha1 level reassessed. Patient is alert, oriented x 3, equal unlabored respirations, skin warm/dry/pink. Vital Signs: 00:32 BP 128 / 82; Pulse 84; Resp 28; Temp 98.6(O); Pulse Ox 99% on R/A; jb4 00:45 BP 126 / 81; Pulse 79; Resp 19 S; Pulse Ox 98% on R/A; ha1 01:45 BP 136 / 94; Pulse 75; Resp 16 S; Pulse Ox 99% on R/A; ha1 02:28 BP 128 / 69; Pulse 72; Resp 18 S; Pulse Ox 100% on R/A; ha1 ED Course: 00:17 Patient arrived in ED. jj6 00:23 Misty Mckinley PA-C is PHCP. sb4 00:23 Antonio Lucero MD is Attending Physician. sb4 00:23 Patient has correct armband on for positive identification. Bed in low position. Call ha1 light in reach. Side rails up X 1. Adult w/ patient. 00:23 Provided Education on: PLAN OF CARE . ha1 00:23 Inserted saline lock: 20 gauge in right antecubital area, using aseptic technique. ha1 Flushed with 10 mL NS. 00:34 Triage completed. jb4 00:35 Arm band placed on right wrist. jb4 02:28 No provider procedures requiring assistance completed. ha1 02:30 IV discontinued, intact, bleeding controlled, No redness/swelling at site. Pressure ha1 dressing applied. Administered Medications: 00:37 Drug: diphenhydrAMINE IVP 50 mg IVP once Route: IVP; Site: right upper arm; jb4 01:10 Follow up: Response: No adverse reaction; Marked relief of symptoms ha1 00:38 Drug: MethylPrednisoLONE IVP 125 mg IVP once Route: IVP; Site: right upper arm; jb4 01:00 Follow up: Response: No adverse reaction; Marked relief of symptoms ha1 00:43 Drug: NS 0.9% IV 1000 ml IV at 1 bolus Per protocol; to be given as a bolus over 60 ha1 minutes Route: IV; Rate: 1 bolus; Site: right upper arm; 02:31 Follow up: Response: No adverse reaction; IV Status: Completed infusion; IV Intake: ha1 1000ml 00:44 Drug: Famotidine IVP 20 mg IVP once; dilute with 10 mL 0.9% NaCl; give over 2 minutes ha1 Route: IVP; Site: right upper arm; 01:00 Follow up: Response: No adverse reaction; Marked relief of symptoms ha1 02:01 Drug: Ativan IVP 1 mg IVP once Route: IVP; Site: right antecubital; cg 02:20 Follow up: Response: No adverse reaction; Marked relief of symptoms ha1 02:01 Drug: Ondansetron IVP 4 mg IVP once; over 2 minutes Route: IVP; Site: right antecubital;cg 02:20 Follow up: Response: No adverse reaction; Marked relief of symptoms ha1 Medication: 02:15 VIS not applicable for this client. ha1 Intake: 02:31 IV: 1000ml; Total: 1000ml. ha1 Outcome: 02:14 Discharge ordered by . sb4 02:29 Discharged to home ambulatory, with family, ha1 02:29 Condition: stable 02:29 Discharge instructions given to patient, family, Instructed on discharge instructions, follow up and referral plans. medication usage, Demonstrated understanding of instructions, follow-up care, medications, Prescriptions given X 4, 02:30 Patient left the ED. ha1 Signatures: Jeannine Pihlippe RN RN Jeremiah Carrizales RN RN jb4 Etta Casarez jj6 Porsche Olvera RN RN ha1 Misty Mckinley, PA-C PA-C sb4 Corrections: (The following items were deleted from the chart) 02:14 01:49 Reassessment: Patient and/or family updated on plan of care and expected ha1 duration. Pain level reassessed. Patient is alert, oriented x 3, equal unlabored respirations, skin warm/dry/pink. ha1
[2024-12-19 02:44] VITALS: TEMP 98.6
[2024-12-19 03:01] VITALS: BP 128/69; O2SAT 100
== END 2024-12-19 02:30 | disposition home or self-care (01) ==
LOC: ER 00:16
DX: R06.02 Shortness of breath (principal); R21 Rash and other nonspecific skin eruption; Z91.013 Allergy to seafood
CPT/HCPCS: 99284; J1200; J2405; J2919; J7030